=== PATIENT | female | born 1970 | race African-American/Black ===

== ENCOUNTER 2017-06-07 11:46 | Observation (INO) | payer SELFPAY ==
[~2017-06-07] VITALS: Ht 170.2 cm; Wt 76.7 kg
[2017-06-07 13:08] LABS: Basophils # (auto) 0.2 uL; Basophils % (auto) 1.8 % (0.0-2.0); Eosinophils # (auto) 0 uL; Hematocrit 43.8 % (36.0-46.0); Hemoglobin 14.8 g/dL (12.2-16.2); Lymphocytes # (auto) 2.5 uL; Lymphocytes % (auto) 25.8 % (10.0-50.0); Mean Corpuscular Hemoglobin 33.4 pg (28.0-32.0); Mean Corpuscular Hgb Conc. 33.7 g/dL (32.0-36.0); Mean Corpuscular Volume 99.1 fL (80.0-100.0); Mean Platelet Volume 10.5 fL (6.9-10.8); Monocytes # (auto) 0.6 uL; Monocytes % (auto) 6.3 % (0.0-12.0); Neutrophils # (auto) 6.3 uL; Neutrophils % (auto) 66.1 % (37.0-80.0); Platelet Count (auto) 216 10^3/uL (140-450); Red Cell Distribution Width 13.3 % (11.8-14.3); White Blood Cell 9.6 10^3/uL (4.4-10.8)
[2017-06-07 13:35] LABS: Albumin 4.1 g/dL (3.4-5.0); BUN/Creatinine Ratio 9.9; Calcium 9.2 mg/dL (8.5-10.1); Potassium 3.3 mmol/L (3.5-5.1)
[2017-06-07 13:38] LABS: Bilirubin, Total 0.4 mg/dL (0.2-1.0); Total Protein 8.6 g/dL (6.4-8.2)
[2017-06-07 16:30] LABS: Magnesium 1.9 mg/dL (1.6-2.6)
[2017-06-07] MEDS ORDERED: ONDANSETRON HCL 4 MG/2 ML VIAL IV ONE (16:30)
[2017-06-07] MEDS ORDERED: SODIUM CHLORIDE 0.9% 1,000 ML IV ONE (16:30)
[2017-06-07] MEDS ORDERED: KETOROLAC TROMETH 30 MG/ML 1ML VIAL IV ONE (16:30)
[2017-06-07 16:35] LABS: INR 1.08 (0.9-1.15); Partial Thromboplastin Time 26.5 sec (22.64-33.71); Prothrombin Time 11.8 sec (9.37-12.3)
[2017-06-07 18:32] LABS: Urine RBC None Seen /hpf (0 - 4)
[2017-06-07 18:48] LABS: Urine Bilirubin Negative (Negative); Urine Blood Negative /uL (Negative); Urine Color Yellow (Yellow); Urine Glucose Normal (Normal); Urine Ketone 2+ (Negative); Urine Mucus FEW (None Seen); Urine Nitrite Negative (Negative); Urine Squamous Epithelial Cell FEW /hpf (<5); Urine Urobilinogen Normal (Negative); Urine pH 5.5 (5.0-8.0)
[2017-06-07 20:21] VITALS: BP 137/75
== END 2017-06-07 21:15 | disposition home or self-care (01) | DRG 392 ==
LOC: ER 11:56 → OVERFLOW 16:02 → ER 21:15
PROVIDERS: ADMIT Family Medicine; ATTEND Family Medicine
DX: R10.9 Unspecified abdominal pain (principal); E87.6 Hypokalemia; R00.1 Bradycardia, unspecified; R11.2 Nausea with vomiting, unspecified; I10 Essential (primary) hypertension
CPT/HCPCS: 36415; 71010; 74176; 80053; 81001; 82150; 83690; 83735; 84484; 85025; 85610; 85730; 93005; 96361; 96374; 96375; 99285; G0378; J1885; J2405; J7030